=== PATIENT | male | born 1940 | race Caucasian/White ===

== ENCOUNTER 2023-12-20 12:34 | Emergency (ER) | payer MEDICARE, BC, SELFPAY ==
[2023-12-20 12:47] VITALS: BP 150/54
--- NOTE | 2023-12-20 13:03 | ED.GENMED ---
History of Present Illness
General
Chief Complaint: Fall
Source: patient and spouse
Time Seen by Provider: 12/20/23 13:02
Travel History
Have you had any contact with someone who has COVID-19?: No
Do you have any symptoms of coronavirus? Fever > 100 degrees, chills, cough, shortness of breath, sore throat, loss of taste or smell, muscle aches, or headache?: No
History of Present Illness
History of Present Illness:
This patient is a very pleasant 82-year-old male who slipped and fell about an hour prior to presentation. Since the fall, he reports discomfort at the left lower costal/upper abdominal area. This is prickly worse with certain movements and a deep
breath. He denies hitting his head, loss of consciousness, bleeding. He denies dyspnea, upper chest pain, neck pain, numbness, tingling, focal weakness, or other complaints. Of note, patient is on a DOAC
Past History
Past History
ED Past Medical History: Arrthythmia, CAD, Cancer, HTN, Hypercholesterolemia, NIDDM and Other
ED Past Surgical History: Cardiac (Cardiac stent January 2016)
Social History
Tobacco: Non-smoker
Alcohol: Occasional
Drug: None
Personal:
Living: with family
Employment: Retired
Family History
Family History: Hypertension
Phy Exam
Physical Exam
Physical Exam:
Note 1:04 PM patient initially examined in triage in order to expedite treatment and diagnostic workup
GENERAL: Alert , appears uncomfortable
EYE: pupils equal
NECK: Supple, no significant adenopathy, no midline tenderness.
ENT: mmm.
CARDIAC: Regular rate and rhythm .
LUNGS: Clear breath sounds bilaterally, no acute respiratory distress, no wheezes/rales/rhonchi, obvious splinting with deep breath, no crepitus, no bruising. TTP noted at ant lower L costal and less so upper abd area
ABDOMEN: Soft, without focal tenderness, no r/g, no bruising noted
NEUROLOGICAL: Alert and oriented, no focal neuro deficits
SKIN: Warm and dry, skin intact.
MUSCULOSKELETAL: No edema, well perfused.
PSYCH: Normal and appropriate interaction.
Course
Orders/Labs/Results
Orders:
Orders
12/20/23 13:02
CT Chest/abd/pel W Iv Cont Urgent
Reason For Exam: doac L sided lower chest/upper torso pain sp fall
Cardiac Monitoring- Treatment ONCE
12/20/23 13:03
Morphine Sulfate 4 mg IV NOW STA
12/20/23 13:06
Basic Metabolic Panel Urgent
Complete Blood Count/With Diff Urgent
12/20/23 16:03
Incentive Spirometry [Rx Incentive Spirometry] [RESP] Urgent
Frequency: q1h while awake
Abnormal Lab Results
12/20/23
13:06
WBC 11.6 H 10^3/uL
(4.8-10.8)
RBC 4.69 L 10^6/uL
(4.70-6.10)
MPV 11.2 H fL
(7.4-10.4)
Absolute Neuts (auto) 9.0 H 10^3/uL
(1.4-6.5)
Absolute Monos (auto) 0.8 H 10^3/uL
(0.1-0.6)
Neutrophils % 77.3 H %
(42.2-75.2)
Lymphocytes % 11.3 L %
(20.5-51.1)
BUN 29 H mg/dl
(9-20)
Creatinine 1.5 H mg/dL
(0.7-1.3)
Glucose 238 H mg/dl
(70-99)
12/20/23 13:06
12/20/23 13:06
Vital Signs
Initial and Last Documented VS:
Initial Vital Signs
Pulse Resp BP Pulse Ox
59 18 150/54 99
12/20/23 12:47 12/20/23 12:47 12/20/23 12:47 12/20/23 12:47
Last Documented Vital Signs
Temp Pulse Resp BP Pulse Ox
98 F 74 16 131/56 98
12/20/23 16:35 12/20/23 16:35 12/20/23 16:35 12/20/23 16:35 12/20/23 16:35
*Critical Care Note
Total Time (30-74mins, 75-104mins- exclusive of procedures): Not Applicable
Update Note
Update Note:
Patient presents to the Emergency Department with __fall
Number and Complexity of Problems Addressed at the Encounter
� Chronic conditions affecting care:
� Acute Exacerbation and/or Progression of Chronic Illness:
� Differential Diagnosis includes: But not limited to contusion, retroperitoneal bleed, rib fracture, hemothorax, etc.
Amount and/or Complexity of Data to be Reviewed and Analyzed
� I performed an independent evaluation of and my interpretation is:
EKG:
CT:�Mildly displaced posterolateral left seventh through ninth rib fractures.
2. No other significant acute abnormality identified in the chest, abdomen or pelvis, as described above.� Stable chronic changes as described.
Xrays:
Laboratory Studies:sl nonspecific wbc and cr elevation.
Other:
� Review of other/old records reveals:
� Clinical information was obtained by an independent historian: who is present
� Prescriptions/Medications Considered but not given:
� Further testing considered but not performed:
Risk of Complications and/or Morbidity or Mortality of Patient Management
� Social determinants of health affecting care:
� Discussion with other providers (PCP, Hospitalists, Consultants, etc):
� Escalation of care including admission/observation vs risk of discharge considered:
154pm repeat assessment, pt comfortable, awaiting ct
359 pm pt eating pizza, drinking soda, comfortable, stillwith pain with movement but manageable. no hypoxia. no vomiting. d/w pt recommend for observation, espec given doac use, he elects d/c with close f/u and pain meds. d/w him r/b of pain
meds, and reasons to rted.
ED Attending Note
-
Portions of this chart may have been created with voice recognition software.� Occasional wrong word or��sound alike� substitutions may have occurred due to the inherent limitations of voice recognition software.
Discharge Plan
Departure
Patient Disposition: Home (Routine Discharge)
Date of Disposition: 12/20/23
Time of Disposition: 16:01
Patient with high blood pressure during this ER visit?: Yes
Condition: Good
Discharge Problem:
Fracture of rib
Instructions: Rib fractures in adults, BLOOD PRESSURE
Prescriptions:
New
oxycodone-acetaminophen [Percocet] 5-325 mg tablet
1 tab PO Q4HPRN PRN (Reason: pain) Qty: 13 0RF
No Action
fexofenadine [Ruth] 180 MG tablet
180 mg PO DAILYPRN PRN (Reason: ALLERGIES)
coenzyme Q10 [CoQ-10] 100 MG capsule
100 mg PO DAILY
nitroglycerin 0.4 MG tablet, sublingual
0.4 mg sublingual [id number] PRN (Reason: chest discomfort) Qty: 25 0RF
atorvastatin 20 MG tablet
20 mg PO QPM Qty: 90 3RF
lisinopril 20 MG tablet
40 mg PO DAILY
insulin aspart U-100 [Novolog FlexPen U-100 Insulin] 300 UNITS/3 ML insulin pen
8 - 12 units SC MEALS
Patient Comments:
SLIDING SCALE WITH MEALS BASED ON CARB INTAKE
insulin glargine [Lantus Solostar U-100 Insulin] 300 UNITS/3 ML insulin pen
46 units SC HS
liraglutide [Victoza 2-Patrice] 0.6 MG/0.1 ML pen injector
1.8 mg SC DAILY
Patient Comments:
VICTOZA 3PK 18MG/3ML-1.2MG DAILY
multivitamin with folic acid [Tab-A-Radha] 1 TABLET tablet
1 tab PO DAILY
furosemide 40 MG tablet
40 mg PO DAILY
cyanocobalamin (vitamin B-12) 1,000 MCG tablet
1,000 mcg PO Q48H
potassium [Potassium-99] 99 MG tablet
99 mg PO Q48H
tamsulosin 0.4 MG capsule
0.4 - 0.8 mg PO [id number]
zinc 50 MG tablet
30 mg PO Q48H
apixaban [Eliquis] 5 MG tablet
5 mg PO BID
Referrals:
Romain Goldberg MD [Family Provider] - Follow up in 2-3 days
Activity Restrictions/Additional Instructions:
IF YOU DEVELOP DIZZINESS, INCREASING OR NEW PAIN, TROUBLE BREATHING, BLEEDING, SWELLING, ABDOMINAL PAIN, VOMITING, OR OTHER WORRISOME SIGNS, PLEASE RETURN TO THE ER IMMEDIATELY.
Interventions
Interventions:
*Risk Screen - Suicide Last Done: 12/20/23 12:47
*General Assessment Last Done: 12/20/23 12:47
*Neglect/Abuse Screening Last Done: 12/20/23 12:47
ED- Fall Risk Assessment Last Done: 12/20/23 13:25
*ED COVID-19 Vaccine History Last Done: 12/20/23 12:47
*Nursing Disposition Last Done: 12/20/23 16:35
ED-Musculoskeletal Assessment Last Done: 12/20/23 13:40
ED- Neurological Assessment Last Done: 12/20/23 13:40
ED-Skin Assessment Last Done: 12/20/23 13:40
Discharge Date and Time
Discharge Date/Time: 12/20/23 16:35
[2023-12-20 13:12] LABS: % Basophils 0.6 % (0-2); % Eosinophils 3.5 % (0-6); % Immature Granulocytes 0.3 % (0-0.5); % Lymphocytes 11.3 % (20.5-51.1); % Neutrophils 77.3 % (42.2-75.2); Absolute Basophils 0.1 10^3/uL (0-0.2); Absolute Eosinophils 0.4 10^3/uL (0-0.7); Absolute Lymphocytes 1.3 10^3/uL (1.2-3.4); Absolute Monocytes 0.8 10^3/uL (0.1-0.6); Hematocrit 42.3 % (39.0-52.0); Hemoglobin 14.1 g/dL (13.0-18.0); Mean Corp Hgb Conc. 33.3 g/dL (33.0-37.0); Mean Corpuscular Hgb 30.1 pg (27.0-31.0); Mean Corpuscular Volume 90.2 fL (80.0-94.0); Mean Platelet Volume 11.2 fL (7.4-10.4); Nucleated Red Blood Cells % 0 % (-); Platelet Count 220 10^3/uL (130-400); Red Blood Cell Count 4.69 10^6/uL (4.70-6.10); Red Cell Dist. Width 12.4 % (11.5-14.5); White Blood Cell Count 11.6 10^3/uL (4.8-10.8)
[2023-12-20] MEDS: MORPHINE SULFATE 4 MG IV (13:19)
[2023-12-20 13:20] VITALS: BMI 35.7
[2023-12-20 13:49] VITALS: BP 134/54
[2023-12-20 13:49] LABS: Blood Urea Nitrogen 29 mg/dl (9-20); Carbon Dioxide 25 mmol/L (22-30); Chloride 104 mmol/L (98-107); Estimated Creatinine Clearance 54 ml/min; Glucose 238 mg/dl (70-99); Sodium 136 mmol/L (135-145); eGFR 46.19
[2023-12-20 14:00] VITALS: BP 106/43
[2023-12-20 16:24] VITALS: BP 131/56
[2023-12-20 16:35] VITALS: BP 131/56
== END 2023-12-20 16:35 | disposition home or self-care (01) ==
LOC: EMR 12:34
PROVIDERS: EMERGENCY PHYSICIAN Emergency Medicine; FAMILY PHYSICIAN Family Medicine
DX: S22.42XA Multiple fractures of ribs, left side, initial encounter for closed fracture (principal); W01.0XXA Fall on same level from slipping, tripping and stumbling without subsequent striking against object, initial encounter; I10 Essential (primary) hypertension
CPT/HCPCS: 99285; 96374; 71260; 74177; 80048; 85025; Q9967

== ENCOUNTER → 2024-05-08 16:06 | Outpatient (REF) | payer MEDICARE, BC, SELFPAY | LOC: RAD 16:06 | PROVIDERS: ATTENDING PHYSICIAN Family Medicine | DX: R05.9 Cough, unspecified (principal) | CPT/HCPCS: 71046 ==

== ENCOUNTER → 2025-06-04 11:23 | Outpatient (REF) | payer MEDICARE, BC, SELFPAY | LOC: HWRAD 11:23 | PROVIDERS: ATTENDING PHYSICIAN Internal Medicine; FAMILY PHYSICIAN Family Medicine | DX: N18.32 Chronic kidney disease, stage 3b (principal) | CPT/HCPCS: 76770 ==